=== PATIENT | male | born 1970 | race Caucasian/White ===

== ENCOUNTER 2023-08-25 11:25 | Outpatient (REF) | payer OTHER, SELFPAY ==
[2023-08-25 14:19] LABS: MANUAL DIFF FLAG NO
[2023-08-25 14:21] LABS: Appearance Urine Clear; Color Urine Yellow; Glucose Urine UA Negative (Negative); Leukocyte Esterase Urine Negative (Negative); Nitrite Urine Negative (Negative); Urine Blood Negative (Negative); Urine Ketones Negative (Negative); Urine Protein Negative (Neg-Trace)
[2023-08-25 14:24] LABS: Basophils Percent Auto 1.1 % (0-2); Eosinophils Absolute Auto 0.2 X10*3/uL (0.0-0.4); Eosinophils Percent Auto 6.1 % (0-4); Hematocrit 48.3 % (42.0-52.0); Hemoglobin 16.9 g/dl (14.0-18.0); Imm Gran Abs Auto 0.01 X10*3/uL (0.00-0.03); Imm Gran Pct Auto 0.3 % (0.0-0.4); Lymphocytes Percent Auto 26.1 % (20-40); Mean Corpuscular Hemoglobin 31.3 pg (27.0-33.0); Mean Corpuscular Volume 89.4 fL (80.0-98.0); Monocytes Absolute Auto 0.3 X10*3/uL (0.1-1.2); Monocytes Percent Auto 7.4 % (2-11); Neutrophils Absolute Auto 2.3 x10*3/uL (2.0-8.3); Platelet Count 188 X10*3/uL (160-400); Red Cell Distribution Width 12.8 % (11.0-16.0); White Blood Count 3.8 X10*3/uL (4.8-10.8)
[2023-08-25 14:55] LABS: Creatinine Urine 175.87 mg/dL; Microalbum/Creatinine Ratio Ur 4.5 ug/mg cr (<30)
[2023-08-25 15:01] LABS: Erythrocyte Sedimentation Rate 2 MM/HR (0-15)
[2023-08-25 15:13] LABS: Prostate Specific Antigen Scr 1.47 ng/mL (<0.05-4.0)
[2023-08-25 15:36] LABS: Alanine Aminotransferase 18 U/L (0-40); Albumin Level 4.3 g/dL (3.5-5.0); Alkaline Phosphatase 49 U/L (39-117); Anion Gap 16 (12-20); Aspartate Amino Transferase 26 U/L (5-37); Bilirubin Total 0.9 mg/dL (0.0-1.0); Blood Urea Nitrogen 13 mg/dL (9-16); Calcium 9.7 mg/dL (8.4-10.2); Carbon Dioxide 20 mmol/L (22-29); Chloride 110 mmol/L (96-108); Cholesterol 205 mg/dL (<200); Estimated Glomerular Filt Rate > 60; Glucose Fasting 69 mg/dL (60-99); HDL Cholesterol 55 mg/dL (>40); LDL Cholesterol Calculated 128 mg/dL (<100); Potassium 4.3 mmol/L (3.3-5.1); Sodium 142 mmol/L (135-145); Total Protein 7.5 g/dL (6.5-8.0); Triglycerides 110 mg/dL (<150)
[2023-08-25 16:26] LABS: TSH reflex Free T4 0.93 uIU/mL (0.32-4.0)
[2023-08-27 06:19] LABS: CRP High Sensitivity 0.6 mg/L
== END 2023-08-25 11:26 | disposition home or self-care (01) ==
LOC: HO.WFDLDS 11:25
PROVIDERS: Visit Provider Family Medicine
DX: Z00.00 Encounter for general adult medical examination without abnormal findings (principal); R51.9 Headache, unspecified; I10 Essential (primary) hypertension; Z12.5 Encounter for screening for malignant neoplasm of prostate
CPT/HCPCS: 36415; 80053; 80061; 81003; 82043; 82570; 84153; 84443; 85025; 85652; 86141

== ENCOUNTER 2023-10-08 12:44 | Outpatient (AMB) | payer OTHER, SELFPAY ==
--- NOTE | 2023-10-08 12:47 | MHC.PC.OV ---
Vital Signs 10/08/23 12:48 Height 5 ft 6 in Weight 199 lb 8 oz BMI 32.2 BP 122/62 Blood Pressure Location Lt brachial Position Sitting Pulse 77 Pulse Source Pulse Oximeter Pulse Oximetry (%) 98 Oxygen Delivery Method Room Air Intake Visit Reasons: CPE with f/u labs and health maint. Intake Note: Patient is here for his physical today. Allergies No Known Allergies Allergy (Verified 10/08/23 12:51) Medication List - Last Reconciled 10/08/23 by Cody Young MD No Known Home Meds Tobacco use date assessed: 10/08/23 Dental Screening Dental Screen Date: 08/25/23 HPI CPE with f/u labs and health maint. HPI Details 53 y/o male presents for a CPE with f/u labs and health maintenance. Labs were drawn 08/25/23. Reviewed labs with pt. Triglycerides 110. TC 205. LDL 128. HDL 55. PSA level 1.47 ng/mL. Pt reports he has had a colonoscopy before and reports FHx of colon cancer. He does not remember where his last colonoscopy was. HPI Comments History of Present Illness Details Documentation assistance for Cody Young MD, was provided by Donato Kwan,? Clerk Typist on 10/08/2023 at 1:08 PM EST. I, Dr. Young, have read, observed, and verified documentation. [facility] Medical History (Updated 10/08/23 @ 13:07 by Donato Kwan) Sinusitis Surgical History (Updated 08/25/23 @ 10:30 by Katerina Bolaños CMA) H/O vasectomy Family History (Updated 08/25/23 @ 10:33 by Katerina Bolaños CMA) Brother Mental health disorder Father Mental health disorder High blood pressure Cardiovascular disease Mother Breast cancer Colon cancer Maternal Grandmother Breast cancer Maternal Grandfather Colon cancer Social History (Updated 08/25/23 @ 10:36 by Katerina Bolaños CMA) Household Members: Family Both parents involved: No Caregiver staying overnight: No Housing: House Are you a primary career and guidance counselor to a significant other at home: No Do you presently have visiting nurse or other home services: No Alcohol intake: current Alcohol intake frequency: a few times a week Alcohol type: beer and hard liquor Patient Tobacco Use Status: Never used Tobacco Tobacco use type: Cigarette e-Cigarette/Vaping Use: Never Used Substance Use Type: Marijuana and Other Special sumit needs: No service: No Current occupational status: employed Current occupation: IT worker. Cognitive needs: No Hearing needs: No Vision needs: Yes (Patient wears reading glasses. ) Questionnaire Thrive Questionnaire Date Thrive assessed: 08/25/23 SUSANNAH-7 AMB Questionnaire SUSANNAH-7 Date SUSANNAH - 7 assessed: 08/25/23 Source: Developed by Drs. Chao Hobbs, Alia Stewart, Emre Negron and colleagues, with an educational melany from [employer]. Review of Systems Const Denies chills, Denies fatigue, Denies fever(s), Denies headache(s) and Denies weakness Eyes Denies change in vision ENT Denies dizziness, Denies headache(s), Denies hearing loss, Denies nasal congestion, Denies sinus pain, Denies sinus pressure and Denies sore throat Card Denies chest pain, Denies lightheadedness, Denies dyspnea and Denies other (palpitations) Resp Denies cough, Denies dyspnea and Denies wheezing GI Denies abdominal pain, Denies melena, Denies hematochezia, Denies change in bowel habits, Denies dyspepsia and Denies nausea Denies hematuria and Denies dysuria Musc Denies abnormal gait, Denies myalgias, Denies arthralgias, Denies numbness and Denies tingling Skin/Breast Denies rash, Denies unusual bruising and Denies wounds Neuro Denies abnormal gait, Denies dizziness, Denies headache(s), Denies memory loss, Denies numbness, Denies Sensory deficit (Neuro), Denies tingling and Denies weakness Psych Denies anxiety, Denies depression and Denies memory loss Endo Denies cold intolerance, Denies fatigue, Denies heat intolerance, Denies polydipsia and Denies polyuria Gigi/Lymph Denies easy bleeding and Denies easy bruising Aller/Immun Denies wheezing Physical exam (Primary Care) Vital Signs: Last Vital Signs Pulse 77 10/08/23 12:48 BP 122/62 10/08/23 12:48 Pulse Ox 98 10/08/23 12:48 Oxygen Delivery Method Room Air 10/08/23 12:48 BMI result Body Mass Index 32.2 Tobacco/Smoking Status: Tobacco use Status Tobacco use date assessed 10/08/23 10/08/23 12:56 Patient Tobacco Use Status Never used Tobacco 10/08/23 12:49 Tobacco use type Cigarette 10/08/23 12:49 e-Cigarette/Vaping Use Never Used 10/08/23 12:49 Thrive Assessment: Date of Thrive Assessment Date Thrive assessed 08/25/23 10/08/23 12:49 Const General: no acute distress, well developed, alert and awake Nutritional Appearance: well nourished Orientation/consciousness: patient oriented x3 HENMT Head: Yes normocephalic and Yes atraumatic Ears: hearing grossly normal bilaterally and TM's normal bilaterally General nose exam: Normal external nose present and Normal nares present Mouth: Normal oral and palatal mucosa present and moist mucous membranes Teeth and gingiva: dentition normal Throat: Yes posterior oropharynx normal Eyes General: appearance normal, both eyes and all related structures Pupils: Equal, round and reactive pupils present and Pupil accommodation reflex normal EOM: EOMs intact bilaterally Neck Neck: Yes normal visual inspection, Yes no lymphadenopathy and Yes trachea midline Thyroid: Thyroid normal Carotids: no bruits Lymphatic: no lymphadenopathy noted Chest Chest palpation & inspection: normal inspection of the chest Resp Effort & Inspection: normal respiratory effort Auscultation: clear to auscultation bilaterally Cardio Rate: regular rate Rhythm: regular rhythm Heart sounds: S1 normal heart sound present, S2 normal heart sound present, no gallops, no murmurs and no rubs Bruits: no abdominal aortic bruits and no carotid bruits GI Palpation (GI): No Abdominal aortic bruit present, Soft to palpation, nontender, No hepatosplenomegaly present and No Rebound tenderness present Auscultation: normal bowel sounds General: Yes no CVA tenderness Back/Spine/Pelvis Back: no CVA tenderness Cervical Spine: cervical ROM normal and No Cervical spine tenderness Thoracic/Lumbar Spine: thoraco-lumbar ROM normal, No pain with thoraco-lumbar ROM, No thoracic spinal tenderness and No lumbar spinal tenderness Skin Lesions: no lesions Rashes: no rashes Trauma: no lacerations or abrasions Wounds: no wounds Nails: normal Neuro General: patient oriented x3 Cranial nerves: Yes Equal, round and reactive pupils present Cognition (Neuro): normal cognition Gait exam (Neuro): Normal gait present Motor exam (neuro): 5/5 motor strength present throughout Sensory Exam: No Sensory deficit (Neuro) Deep tendon reflexes (DTR's): Right patellar reflex intensity grade: 2+ and Left patellar reflex intensity grade: 2+ Extrem General: Yes normal to inspection and No edema Psych Appearance: grossly normal Affect: normal affect Attitude: cooperative Thought process: Normal thought process present Assessment and Plan Assessment & Plan (1) Adult general medical exam: Code(s): Z00.00 - Encounter for general adult medical examination without abnormal findings Plan: Presents?for?complete?physical?exam Encouraged?healthy?diet?with?active?lifestyle?and?plenty?of?exercise (2) Hypercholesterolemia: Code(s): E78.00 - Pure hypercholesterolemia, unspecified Plan: LDL?elevated HDL?ratios?okay Encouraged?diet?lower?in?saturated?fats?and?cholesterol,?exercise?and?some?weight?loss (3) Screening for prostate cancer: Code(s): Z12.5 - Encounter for screening for malignant neoplasm of prostate Plan: PSA?was?within?normal?limits Continue?annual?screening (4) Screening for colon cancer: Code(s): Z12.11 - Encounter for screening for malignant neoplasm of colon Plan: Patient?has?had?a?colonoscopy?and?is?uncertain?where?this?was?done?in?[facility]?family?history?of?colon?cancer?(mother)?and?his?most?recent?colonoscopy?showed?polyps?so?he?was?advised?to?follow-up?in?3?years Will?ask?the?office?to?track?down?colonoscopy?report?so?we?can?advise?when?he?should?go?for?follow-up Advised?patient?to?check?with?their?spanner operator?so?they?know?when?they?should?follow-up Coding Level of Care Code Est Pt Level 3 (32587) Est Pt Prev Care 40-64y(20604) Diagnoses Adult general medical exam Z00.00 Hypercholesterolemia E78.00 Screening for prostate cancer Z12.5 Screening for colon cancer Z12.11
[2023-10-08 12:48] VITALS: BP 122/62; PULSE 77; O2SAT 98; BMI 32.2
== END 2023-10-08 13:21 | disposition home or self-care (01) ==
PROVIDERS: PCP Family Medicine; Visit Provider Family Medicine
DX: Z00.00 Encounter for general adult medical examination without abnormal findings (principal); E78.00 Pure hypercholesterolemia, unspecified; Z12.5 Encounter for screening for malignant neoplasm of prostate; Z12.11 Encounter for screening for malignant neoplasm of colon
CPT/HCPCS: 99396

== ENCOUNTER 2024-09-06 13:10 | Outpatient (AMB) | payer OTHER, SELFPAY ==
[2024-09-06 13:29] VITALS: BP 120/74; PULSE 75; O2SAT 96; BMI 32.8
--- NOTE | 2024-09-06 13:29 | MHC.OFFVIS ---
Vital Signs 09/06/24 13:29 Height 5 ft 6 in Weight 203 lb BMI 32.8 BP 120/74 Blood Pressure Location Lt brachial Position Sitting Pulse 75 Pulse Source Pulse Oximeter Pulse Oximetry (%) 96 Oxygen Delivery Method Room Air Intake Visit Reasons: I-PLASTER APPLICATOR: Sleep Apnea + Headaches Intake Note: HPatient presents internal referral for CORI and headaches. Glost Kiln Operator Required: No Accompanied by: Self / Same As Patient Allergies No Known Allergies Allergy (Verified 09/06/24 13:31) Medication List - Last Reconciled 09/06/24 by ZULEYKA Guallpa No Known Home Meds HPI Comments Details: Right-handed 54-yr-old male presents for new pt evaluation of sleep and headache disorder. Pt reports he has headaches for 2-3 years, which were worsening, but have been better in the last couple of months. Denies preceding infection, injury, travel prior to onset of headaches. Pt reports his sleep difficulties are predominantly sleep maintenance difficulties. His has told him he snores, has apneas/gasping, but he is not sure. He can be sleepy during the day. Pt states that he just realized that his sleep maintenance issues may be secondary to newer onset BUE, but mostly LUE 2nd and 3rd finger, an annoying numbness (w/o pins and needles) which wakes him up at night. Notices this more ta night, and can wake him up. He feels this is different and not a/w the headache. PMH and ROS are notable for:? General: denies dizziness, motion sickness Musculoskeletal disorders or injury: has h/o right shoulder injury History of concussion/head injury: maybe as a child Mood d/o: denies Respiratory d/o: denies CV disease: mild HLD Clotting or hematology d/o: Raynaud's - fingers may turn white, self-dx's about 5 yrs ago. Endocrine or metabolic d/o: denies History of seizure: denies. History of syncope: denies : denies GI d/o: denies Family history of migraine or other headache disorder: denies Lifestyle considerations: Sleep routine: Usual bedtime: 9-9:15pm, and reads- asleep by 9:30pm, and wake-up time: 2-4am- and then reads to try to fall back asleep. He has to be up for 6am. Also has a dog- who sometimes wakes him up but not always. Sleep environment is conducive to sleeping. Does read on a juan pablo or uses his tablet- uses blue light filtering on these. Sleep difficulties: Endorses: Snoring- more so if he sleeps on his back- typically only does this when drinking, daytime sleepiness depending on sleep and activity, Fatigue, has told him he has apneas and gasping Arousals, unrefreshing sleep. Denies parasomnias, restlessness, acid reflux, dry mouth/throat. Caffeine use: green tea- 1 cups per am/early afternoon. Substance use: Tried marijuana for sleep- but was not very effective so stopped. Alcohol- couple of drinks after dinner- 1-2 beers +/- bourbon- not every night. Exercise:?started back at the gym 3 days a week- 45 min strength, 30 min ellipictal- around 5pm. 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 Age/time of onset: couple of years ago Preceding causes: unknown Previous work-up: none Types of headache disorders: 1 Typical headache characteristics: Prodrome symptoms: Occasional notion the night before that a headache was coming. Aura: denies Pain intensity: 810 Location, quality, characteristics: Left sided stabbing headache Associated symptoms: difficult to concentrate- but able to work through it. Postdrome: denies Triggers: he thought alcohol, but it did not consistently trigger the headache. Time of day: Typically would wake up with the headache. Duration and Frequency: constant x's 1.5 days. Tends to occur once every few months. How does headache impact your life? none Current acute medication use/interventions: OTC excedrin- ineffective. Ibuprofen w/ Tylenol- ineffective. Current preventative medication use: none Current non-pharmacological interventions: exercise seemed to help PFSH Medical History (Updated 09/06/24 @ 17:23 by ZULEYKA Guallpa) Sinusitis Surgical History (Updated 08/25/23 @ 10:30 by Katerina Bolaños CMA) H/O vasectomy Family History (Updated 08/25/23 @ 10:33 by Katerina Bolaños CMA) Brother Mental health disorder Father Mental health disorder High blood pressure Cardiovascular disease Mother Breast cancer Colon cancer Maternal Grandmother Breast cancer Maternal Grandfather Colon cancer Social History (Updated 08/25/23 @ 10:36 by Katerina Bolaños [facility]) Household Members: Family Both parents involved: No Caregiver staying overnight: No Housing: House Are you a primary foster care social worker to a significant other at home: No Do you presently have visiting nurse or other home services: No Alcohol intake: current Alcohol intake frequency: a few times a week Alcohol type: beer and hard liquor Patient Tobacco Use Status: Never used Tobacco Tobacco use type: Cigarette e-Cigarette/Vaping Use: Never Used Substance Use Type: Marijuana and Other Special sumit needs: No service: No Current occupational status: employed Current occupation: IT worker. Cognitive needs: No Hearing needs: No Vision needs: Yes (Patient wears reading glasses. ) Physical Exam Vital Signs: Last Vital Signs Pulse 75 09/06/24 13:29 BP 120/74 09/06/24 13:29 Pulse Ox 96 09/06/24 13:29 Oxygen Delivery Method Room Air 09/06/24 13:29 BMI result Body Mass Index 32.8 Const Orientation/consciousness: patient oriented x3 Resp Effort & Inspection: normal respiratory effort and able to speak in complete sentences Neuro Other: Mallampati stage IV Mild forward head posture. No palpable scalp or trapezius tenderness. Negative LUE Tinel, Phalen, medial compression test. LUE unrestricted range of motion. Cervical extension limited- negative Spurling General: patient oriented x3 Cranial nerves: Yes CN's II-XII intact bilaterally Cognition (Neuro): normal cognition Gait exam (Neuro): Normal gait present Motor exam (neuro): 5/5 motor strength present throughout Deep tendon reflexes (DTR's): Right triceps reflex intensity grade: 2+, Left triceps reflex intensity grade: 2+, Rt Biceps (C5, C6): 2+, Left biceps reflex intensity grade: 2+, Right brachioradialis reflex intensity grade: 2+, Left brachioradialis reflex intensity grade: 2+, Right patellar reflex intensity grade: 2+ and Left patellar reflex intensity grade: 2+ Coordination: [id number] test normal, tandem gait normal and Romberg test negative Pupils: Normal pupillary reactivity/response: bilateral Psych Appearance: grossly normal Mental Status: mental status grossly normal Speech and movement: Normal speech and movement present Affect: normal affect Attitude: cooperative Thought process: Normal thought process present Assessment & Plan Assessment & Plan (1) Left-sided headache: Code(s): R51.9 - Headache, unspecified Category: Medical (2) Left hand paresthesia: Code(s): R20.2 - Paresthesia of skin Category: Medical (3) Left hand paresthesia: Code(s): R20.2 - Paresthesia of skin Category: Medical (4) Snoring: Code(s): R06.83 - Snoring Category: Medical (5) Sleep difficulties: Comment: ESS 10 Code(s): G47.9 - Sleep disorder, unspecified Category: Medical (6) Excessive daytime sleepiness: Code(s): G47.19 - Other hypersomnia Category: Medical Plan Pt advised to undergo: Brain MRI with and without contrast due to new onset headache in a patient greater than 50 years old, as well as new onset left hand paresthesias/numbness. HST to assess for sleep apnea XR C-spine with flexion and extension LUE EMG/NCS to assess for etiologies of left 2nd 3rd finger paresthesias/numbness. Upon review of above, we will refer patient for PT/OT. For sleep maintenance difficulties in LUE paresthesias/numbness: Start magnesium 400 mg q.h.s. Trial OTC cock-up style wrist splint at night Use a supportive pillow Continue regular exercise program For acute headache treatment: May continue Tylenol/ibuprofen for now pending workup as above Previous acute migraine medication trials: Excedrin ineffective Acute headache medication contraindications: None at this time For headache prevention medication: Start magnesium 400 mg q.h.s.-also for sleep and muscle relaxation. Previous migraine prevention medication trials: None Migraine prevention medication contraindications: None at this time Pt seen in collaboration w/ Dr Christi Hernandez. Will follow-up upon review of above and patient to follow-up in clinic in 6 months or sooner prn. Orders: Orders MR head/brain wo/w con Today R20.2 - Paresthesia of skin, R51.9 - Headache, unspecified RT home sleep study Today G47.19 - Other hypersomnia, G47.9 - Sleep disorder, unspecified, R06.83 - Snoring XR cervical spine w flex/ext Today R20.2 - Paresthesia of skin, R51.9 - Headache, unspecified NE electromyogram (EMG) Today R20.2 - Paresthesia of skin NE nerve conduction velocity Today R20.2 - Paresthesia of skin Medications: New magnesium oxide may hold for loose stools 400 mg PO BEDTIME 30 days 30 tabs 6RF Coding Level of Care Code New Pt Level 4 (12538) Diagnoses Left-sided headache R51.9 Left hand paresthesia R20.2 Snoring R06.83 Sleep difficulties G47.9 Excessive daytime sleepiness G47.19
== END 2024-09-06 14:59 | disposition home or self-care (01) ==
LOC: HO.HSMS 13:10
PROVIDERS: PCP Family Medicine; Visit Provider Nurse Practitioner Family
DX: R51.9 Headache, unspecified (principal); R20.2 Paresthesia of skin; R06.83 Snoring; G47.9 Sleep disorder, unspecified; G47.19 Other hypersomnia
CPT/HCPCS: 99204

== ENCOUNTER 2024-09-30 08:00 | Outpatient (REF) | payer OTHER, SELFPAY ==
[2024-09-30 11:44] LABS: Appearance Urine Clear; Color Urine Yellow; Glucose Urine UA Negative (Negative); Leukocyte Esterase Urine Negative (Negative); Nitrite Urine Negative (Negative); PH 5.5 (5.0-9.0); Specific Gravity - Urine 1.025 (1.005-1.025); Urine Blood Negative (Negative); Urine Ketones Trace mg/dL (Negative); Urine Protein Negative (Neg-Trace)
[2024-09-30 11:59] LABS: Prostate Specific Antigen Scr 1.46 ng/mL (<0.05-4.0)
[2024-09-30 12:15] LABS: Creatinine Urine 316.34 mg/dL; Microalbum/Creatinine Ratio Ur 3.1 ug/mg cr (<30)
[2024-09-30 13:03] LABS: Alanine Aminotransferase 26 U/L (0-40); Albumin Level 4.1 g/dL (3.5-5.0); Alkaline Phosphatase 47 U/L (39-117); Anion Gap 10 (12-20); Aspartate Amino Transferase 34 U/L (5-37); Blood Urea Nitrogen 21 mg/dL (9-16); Calcium 9.3 mg/dL (8.4-10.2); Carbon Dioxide 28 mmol/L (22-29); Chloride 108 mmol/L (96-108); Cholesterol 182 mg/dL (<200); Estimated Glomerular Filt Rate 46; Glucose Fasting 89 mg/dL (60-99); HDL Cholesterol 56 mg/dL (>40); LDL Cholesterol Calculated 102 mg/dL (<100); Potassium 3.9 mmol/L (3.3-5.1); Sodium 142 mmol/L (135-145); TSH reflex Free T4 1.94 uIU/mL (0.32-4.0); Total Protein 6.6 g/dL (6.5-8.0); Triglycerides 123 mg/dL (<150)
== END 2024-09-30 08:01 | disposition home or self-care (01) ==
LOC: HO.WFDLDS 08:00
PROVIDERS: Visit Provider Family Medicine
DX: Z00.00 Encounter for general adult medical examination without abnormal findings (principal); Z12.5 Encounter for screening for malignant neoplasm of prostate; I10 Essential (primary) hypertension
CPT/HCPCS: 36415; 80053; 80061; 81003; 82043; 82570; 84153; 84443

== ENCOUNTER 2024-10-10 16:01 | Outpatient (AMB) | payer OTHER, SELFPAY ==
--- NOTE | 2024-10-10 16:06 | MHC.PC.OV ---
Vital Signs 10/10/24 16:10 Height 5 ft 6 in Weight 200 lb 6 oz BMI 32.3 BP 120/80 Blood Pressure Location Rt brachial Position Sitting Pulse 60 Pulse Source Pulse Oximeter Temp 97.5 F Temp Source Temporal Artery Scan Pulse Oximetry (%) 97 Oxygen Delivery Method Room Air Intake Visit Reasons: CPE with f/u labs and health maint. Intake Note: Amilcar presents in the office today for his annual physical and lab review. Allergies Seasonal Allergies Allergy (Verified 10/10/24 16:09) Runny Nose Tobacco use date assessed: 10/10/24 Dental Screening Dental Screen Date: 10/10/24 Did you have a dental visit in the last 12 months?: Yes Did you have a dental problem in the last 6 months where you did not have access to dental care?: No Was dental information given to patient?: Patient has dentist HPI HPI Comments History of Present Illness Details This is a 54-year-old male with a past medical history of headaches, snoring, hyperlipidemia and obesity presenting for a physical exam. The patient was seen in the neurology department on 09/06/2024 for evaluation of bilateral hand paresthesias and headaches. Further workup including brain MRI, home sleep study, x-ray of the cervical spine and upper extremity EMG/NCS has been ordered. Patient does computer work during the day. He also reports having symptoms of tennis elbow in the right arm which have been improving. He has a tennis elbow strap. It is not limiting his activities. He is going to proceed with further workup, and he may be referred to physical therapy per Neurology notes. If his EMG demonstrates carpal tunnel syndrome we discussed referral to hand surgery. Patient reports his last colonoscopy was in July 2022 at [facility], and he was told to repeat it in 3 years due to polyps. He needs to schedule an eye exam. Dental exam is up-to-date. We reviewed his blood work from 09/30/2024. He has mildly impaired renal function with a creatinine of 1.56 and GFR 46. He reports using NSAIDs 3-4 times per week due to headaches. He is not diabetic. He is a nonsmoker. There were trace ketones on his urinalysis which may also indicate mild dehydration on the day of the test. His LDL cholesterol is satisfactory at 102, triglycerides 123, HDL 56. Prostate specific antigen screening is also normal. ROS: Constitutional: No unexplained weight loss, fever, chills, or night sweats. +fatigue. Eyes: No vision changes, blurry vision, double vision, eye pain, eye redness, eye discharge. ENT: No hearing loss, sneezing, congestion, runny nose or sore throat. Respiratory: No shortness of breath, cough or sputum production. Cardiovascular: No chest pain, chest pressure or chest discomfort. No palpitations or pedal edema. Gastrointestinal: No anorexia, nausea, vomiting or diarrhea. No abdominal pain or blood in stool. Genitourinary: No dysuria, hematuria, urinary frequency. Denies testicular masses, groin pain. Neurologic: No dizziness, syncope, unilateral weakness, ataxia, numbness or tingling in the extremities. Musculoskeletal: See HPI. Denies joint swelling or back pain. Hematologic/Lymphatics: No bleeding or bruising. No painful lymph nodes. Skin: No rash or itching. No new or changing moles or freckles. Endocrine: No cold or heat intolerance. No polyuria or polydipsia. Psychiatric: No depression or anxiety. No SI/HI. .Physical exam: Constitutional: Alert, in no distress. Head: Normocephalic. Eyes: Pupils are equal, round and reactive to light. Extraocular muscles intact. Ear, Nose and Throat: Canals clear. TMs normal. Normal nasal mucosa. No nasal discharge. No oral lesions. Neck: Supple, Full range of motion. No lymphadenopathy. No palpable thyroid masses. Respiratory: Clear to auscultation. Cardiovascular: S1 S2 regular. No murmurs. No carotid bruits. Gastrointestinal: Abdomen soft, non-tender, non-distended. Normal bowel sounds. No palpable masses. Genitourinary: Deferred. Neurologic: No focal neurological deficits. Symmetric patellar reflexes. Moves all extremities spontaneously. Skin: No rashes Musculoskeletal: No gross deformities. Normal range of motion. Extremities: Warm and well perfused. No clubbing, cyanosis or edema. Intact peripheral pulses bilaterally. Psychiatric: Normal mood and affect [facility] Medical History (Updated 10/11/24 @ 08:53 by CYNDI Puente) Decreased renal function Routine physical examination Sinusitis Surgical History (Updated 08/25/23 @ 10:30 by Katerina Bolaños CMA) H/O vasectomy Family History Brother Mental health disorder Father Mental health disorder High blood pressure Cardiovascular disease Mother Breast cancer Colon cancer Maternal Grandmother Breast cancer Maternal Grandfather Colon cancer Social History (Updated 10/10/24 @ 16:07 by Jess Vizcaino MA) Household Members: Family Both parents involved: No Caregiver staying overnight: No Housing: House Are you a primary ocular care technician to a significant other at home: No Do you presently have visiting nurse or other home services: No Alcohol intake: current Alcohol intake frequency: a few times a week Alcohol type: beer and hard liquor Patient Tobacco Use Status: Never used Tobacco Tobacco use type: Cigarette e-Cigarette/Vaping Use: Never Used Second Hand Smoke Exposure: No Substance Use Type: Marijuana and Other Special sumit needs: No service: No Current occupational status: employed Current occupation: IT worker. Cognitive needs: No Hearing needs: No Vision needs: Yes (Patient wears reading glasses. ) Questionnaire PHQ-9 Over the last 2 weeks, how often have you been bothered by any of the following problems? 1. Little interest or pleasure in doing things: not at all 2. Feeling down, depressed, or hopeless: not at all 3. Trouble falling or staying asleep, or sleeping too much: more than half the days 4. Feeling tired or having little energy: several days 5. Poor appetite or overeating: not at all 6. Feeling bad about yourself - or that you are a failure or have let yourself or your family down: not at all 7. Trouble concentrating on things, such as reading the newspaper or watching television: not at all 8. Moving or speaking so slowly that other people could have noticed. Or the opposite - being so fidgety or restless that you have been moving around a lot more than usual: not at all 9. Thoughts that you would be better off or of hurting yourself in some way: not at all Total score: 3 Depression Screening Interpretation: Negative Depression Screening Done: Yes 98609 - PHQ-9 Billing: Yes Source: Developed by Drs. Chao Hobbs, Alia Stewart, Emre Negron and colleagues, with an educational melany from [employer]. Thrive Questionnaire Date Thrive assessed: 06/16/25 I am a: Patient What is your living situation today?: I have a steady place to live Within the past 12 months, did the food you bought not last and you didn't have the money to get more?: Never true Within the past 12 months, did you worry whether your food would run out before you got money to buy more?: Never true Do you have trouble paying for medicines?: No Do you have trouble getting transportation to medical appointments?: No Do you have trouble paying your heating and electricity bill?: No Do you have trouble taking care of your child, family member or friend?: No Do you have trouble with day-to-day activities such as bathing, preparing meals, shopping, managing finances, etc.?: No Are you currently unemployed and looking for a job?: No Are you interested in more education?: No Please select the resources that you would like help with: None Currently or been in a relationship where the following occur: No concerns reported THRIVE Score: 0 AUDIT C Alcohol Use Questionnaire (AUDIT-C) 1. How often do you have a drink containing alcohol?: 2-3 times a week 2. How many drinks containing alcohol do you have on a typical day when you are drinking?: 3 or 4 3. How often do you have six or more drinks on one occasion?: Less than monthly Total Score: 5 SUSANNAH-7 AMB Questionnaire SUSANNAH-7 Date SUSANNAH - 7 assessed: 10/10/24 Feeling nervous, anxious, or on edge: 0 = Not at all Not being able to stop or control worryin = Not at all Worrying too much about different things: 0 = Not at all Trouble relaxin = Not at all Being so restless that it is hard to sit still: 0 = Not at all Becoming easily annoyed or irritable: 0 = Not at all Feeling afraid as if something awful might happen: 0 = Not at all Total SUSANNAH-7 score (0-4 normal; 5-9 mild; 10-14 moderate; 15-21 severe): 0 Source: Developed by Drs. Chao Hobbs, Alia Stewart, Emre Negron and colleagues, with an educational melany from [employer]. SUSANNAH-7 Assessment Billing SUSANNAH-7 Assessment Tool: SUSANNAH-7 Assessment 74044 Physical exam (Primary Care) Vital Signs: Last Vital Signs Temp 97.5 F 10/10/24 16:10 Pulse 60 10/10/24 16:10 BP 120/80 10/10/24 16:10 Pulse Ox 97 10/10/24 16:10 Oxygen Delivery Method Room Air 10/10/24 16:10 BMI result Body Mass Index 32.3 Tobacco/Smoking Status: Tobacco use Status Tobacco use date assessed 10/10/24 10/10/24 16:13 Patient Tobacco Use Status Never used Tobacco 10/10/24 16:13 Tobacco use type Cigarette 10/10/24 16:13 e-Cigarette/Vaping Use Never Used 10/10/24 16:13 PHQ-9: PHQ-9 Score PHQ-9: Total score 3 10/10/24 16:28 Depression Screening Interpretation: Negative Thrive Assessment: Date of Thrive Assessment Date Thrive assessed 10/10/24 10/10/24 16:13 Currently or been in a relationship where the following occur: No concerns reported Coding Level of Care Code Est Pt Prev Care 40-64y(88360) Diagnoses Routine physical examination Z00.00 Decreased renal function N28.9 Additional Codes SUSANNAH-7 Assessment Billing - SUSANNAH-7 Assessment Tool: SUSANNAH-7 Assessment 00427 ([id number]) PHQ-9 - 15261 - PHQ-9 Billing: Yes ([id number]) Assessment & Plan Assessment & Plan (1) Routine physical examination: Code(s): Z00.00 - Encounter for general adult medical examination without abnormal findings Category: Medical Plan: Patient is seen today for a routine physical. As part of this visit we reviewed the following issues, which are considered and essential part of preventative health in this age group: - Screening for colon cancer - Discussed Prostate cancer screening - Blood pressure screening - Cholesterol screening - Nutritional and exercise counseling - Counseling of injury prevention including fire prevention, smoke alarms and seat belt usage - Screening for depression - Education about skin cancer - Recommendations about immunizations- patient is due for pneumonia vaccine and tetanus immunization. He will receive them at the pharmacy. - Recommendation of an eye exam - Screening for substance abuse (2) Decreased renal function: Code(s): N28.9 - Disorder of kidney and ureter, unspecified Category: Medical Plan: No proteinuria. Advised patient to decrease NSAID use and increase hydration and return to the lab to repeat renal function testing. Further workup will be pursued if renal function remains abnormal. Plan Schedule physical exam in 1 year. Orders: Orders Creatinine 10/10/24 E11.9 - Type 2 diabetes mellitus without complications
[2024-10-10 16:10] VITALS: BP 120/80; PULSE 60; TEMP 36.4; O2SAT 97; BMI 32.3
== END 2024-10-10 16:42 | disposition home or self-care (01) ==
LOC: HO.HMCFM 16:02
PROVIDERS: PCP Family Medicine; Visit Provider Physician Assistant Medical
DX: Z00.00 Encounter for general adult medical examination without abnormal findings (principal); N28.9 Disorder of kidney and ureter, unspecified

== ENCOUNTER → 2024-10-10 16:01 | Outpatient (BNVA) | payer OTHER, SELFPAY | PROVIDERS: PCP Family Medicine; Visit Provider Physician Assistant Medical | DX: Z00.00 Encounter for general adult medical examination without abnormal findings (principal); N28.9 Disorder of kidney and ureter, unspecified; Z13.31 Encounter for screening for depression; Z13.30 Encounter for screening examination for mental health and behavioral disorders, unspecified | CPT/HCPCS: 96127 ==

== ENCOUNTER 2024-10-13 15:40 | Outpatient (REF) | payer OTHER, SELFPAY ==
[2024-10-13 17:58] LABS: Estimated Glomerular Filt Rate 49
== END 2024-10-13 15:41 | disposition home or self-care (01) ==
LOC: HO.WFDLDS 15:40
PROVIDERS: Visit Provider Physician Assistant Medical
DX: E11.9 Type 2 diabetes mellitus without complications (principal)
CPT/HCPCS: 36415; 82565

== ENCOUNTER 2024-10-14 14:27 | Outpatient (REF) | payer OTHER, SELFPAY ==
--- NOTE | 2024-10-14 14:29 | EMG_ITS ---
Chief complaint: Left hand numbness Reason for referral: Evaluate for Carpal Tunnel Syndrome Referred by: Virginia Mcgraw Procedure done: Left upper extremity NCS/EMG Precautions and/or limitations: None The limb temperature was monitored continuously and remained between 32-36 degrees C during the performance of the NCS. Nerve Conduction Studies Anti Sensory Summary Table ?Stim Site NR Onset (ms) Norm Onset (ms) Peak (ms) Norm Peak (ms) O-P Amp (?V) Norm O-P Amp Site1 Site2 Delta-0 (ms) Dist (cm) Flaco (m/s) Norm Flaco (m/s) Left Median Anti Sensory (2nd Digit) Wrist ? 2.8 3.7 <3.6 9.9 >10 Wrist 2nd Digit 2.8 14.0 50 Left Ulnar Anti Sensory (5th Digit) Wrist ? 1.9 2.5 <3.7 11.7 >15.0 Wrist 5th Digit 1.9 14.0 74 Motor Summary Table ?Stim Site NR Onset (ms) Norm Onset (ms) O-P Amp (mV) Norm O-P Amp iAmp (mV) Amp (1st) (%) Site1 Site2 Delta-0 (ms) Dist (cm) Flaco (m/s) Norm Flaco (m/s) Left Median Motor (Abd Poll Brev) Wrist ? 4.1 <3.9 8.5 >4.5 10.3 100.0 Elbow Wrist 3.9 20.0 51 >45 Elbow ? 8.0 10.2 12.2 120.0 Left Ulnar Motor (Abd Dig Minimi) Wrist ? 2.3 <3.0 7.5 >5 9.3 100.0 B Elbow Wrist 3.6 20.0 56 >45 B Elbow ? 5.9 6.9 8.8 92.0 A Elbow B Elbow 1.6 10.0 63 >45 A Elbow ? 7.5 6.5 8.5 86.7 Comparison Summary Table ?Stim Site NR Peak (ms) Norm Peak (ms) P-T Amp (?V) Site1 Site2 Delta-P (ms) Norm Delta (ms) Left Median/Radial Dig I Comparison (Digit 1 - 10cm) Median ? 3.3 <2.9 39.1 Median Radial 0.7 Radial ? 2.6 <2.8 0.0 EMG ?Side Muscle Nerve Root Ins Act Fibs Psw Amp Dur Poly Recrt Int Pat Comment Left 1stDorInt Ulnar C8-T1 Nml Nml Nml Nml Nml 0 Nml Complete Left FlexCarRad Median C6-7 Nml Nml Nml Nml Nml 0 Nml Complete Left Biceps Musculocut C5-6 Nml Nml Nml Nml Nml 0 Nml Complete Left Triceps Radial C6-7-8 Nml Nml Nml Nml Nml 0 Nml Complete Left Deltoid Axillary C5-6 Nml Nml Nml Nml Nml 0 Nml Complete FINDINGS: Left median motor nerve showed prolonged distal latency, normal amplitude and normal conduction velocity. Left median sensory nerve showed small amplitude and prolonged peak latency. Significant interlatency difference seen between left median and radial sensory nerves. All other nerves tested were within normal. Concentric needle EMG was performed in selected muscles of the left upper extremity. Study did not reveal signs of electric abnormalities as shown in the table above. IMPRESSION: 1. This is an abnormal study. 2. There is electrodiagnostic evidence for left moderate-severe median neuropathy at the wrist, consistent with carpal tunnel syndrome. 3. There is no electrodiagnostic evidence for ulnar neuropathy, brachial plexopathy, or cervical radiculopathy. Thank you for your kind referral. Shabnam Velazquez MD, IMELDA Board Certified, [place] Board of Physical Medicine and Rehabilitation (ABPMR) Board Certified, [place] Board of Electrodiagnostic Medicine (ABEM) [facility] [id number] [facility]
== END 2024-10-14 14:28 | disposition home or self-care (01) ==
LOC: HO.NEURO 14:27
PROVIDERS: PCP Family Medicine; Visit Provider Nurse Practitioner Family
DX: R20.2 Paresthesia of skin (principal)
CPT/HCPCS: 95886; 95909

== ENCOUNTER → 2024-10-14 14:29 | Outpatient (BNV) | payer OTHER, SELFPAY | PROVIDERS: PCP Family Medicine; Visit Provider Physical Medicine & Rehabilitation | DX: G56.02 Carpal tunnel syndrome, left upper limb (principal) | CPT/HCPCS: 95886; 95909 ==

== ENCOUNTER → 2024-11-17 15:49 | Outpatient (REF) | payer OTHER, SELFPAY | LOC: HO.SL 15:49 | PROVIDERS: PCP Physician Assistant Medical; Visit Provider Nurse Practitioner Family | DX: G47.30 Sleep apnea, unspecified (principal); R06.83 Snoring; G47.9 Sleep disorder, unspecified; G47.19 Other hypersomnia | CPT/HCPCS: 95806 ==

== ENCOUNTER → 2024-11-17 16:02 | Outpatient (BNV) | payer OTHER, SELFPAY | PROVIDERS: PCP Physician Assistant Medical; Visit Provider Psychiatry & Neurology Neurology | DX: R06.83 Snoring (principal) | CPT/HCPCS: 95806 ==

== ENCOUNTER 2024-11-18 11:09 | Outpatient (REF) | payer OTHER, SELFPAY ==
[2024-11-18 14:15] LABS: Estimated Glomerular Filt Rate 52
== END 2024-11-18 11:10 | disposition home or self-care (01) ==
LOC: HO.WFDLDS 11:09
PROVIDERS: Visit Provider Physician Assistant Medical
DX: N28.9 Disorder of kidney and ureter, unspecified (principal)
CPT/HCPCS: 36415; 82565

== ENCOUNTER 2024-12-09 09:18 | Outpatient (AMB) | payer OTHER, SELFPAY ==
[2024-12-09 09:33] VITALS: BP 104/70; PULSE 82; O2SAT 97; BMI 31.1
--- NOTE | 2024-12-09 09:33 | HO.NEPHOV_ITS ---
Vital Signs 12/09/24 09:33 Height 5 ft 6 in Weight 193 lb BMI 31.1 BP 104/70 Blood Pressure Location Lt brachial Position Sitting Pulse 82 Pulse Source Pulse Oximeter Pulse Oximetry (%) 97 Oxygen Delivery Method Room Air Intake Visit Reasons: INP: Disorder of kidney and ureter-Conf Senior Systems Administrator Required: No Accompanied by: Self / Same As Patient Allergies Seasonal Allergies Allergy (Verified 12/09/24 09:35) Runny Nose Medication List - Last Reconciled 12/09/24 by Anil Hernandez MD magnesium oxide 400 mg PO BEDTIME 30 days HPI Comments Details: The patient is a 54-year-old male presenting with elevated serum creatinine levels. The patient had been taking creatine supplements for bodybuilding, which may have contributed to the elevated creatinine levels. The creatinine level was 1.01 mg/dL in July 2023, which increased to 1.56 mg/dL in September 2024. The patient stopped taking creatine supplements approximately six weeks ago, and a follow-up blood test showed some improvement, but the levels were still not within the normal range. The patient has a family history of chronic kidney disease, as his mother has been diagnosed with stage 3 or 4 kidney disease, although she is not on dialysis. she has DM The patient also reports mild sleep apnea, for which a sleep study was conducted approximately four weeks ago, but the results have not yet been reviewed. The patient maintains an active lifestyle, regularly attending the gym and using the [employer] three times a week. [facility] Medical History (Updated 10/11/24 @ 08:53 by CYNDI Puente) Decreased renal function Routine physical examination Sinusitis Surgical History H/O vasectomy Family History Brother Mental health disorder Father Mental health disorder High blood pressure Cardiovascular disease Mother Breast cancer Colon cancer Maternal Grandmother Breast cancer Maternal Grandfather Colon cancer Social History Household Members: Family Both parents involved: No Caregiver staying overnight: No Housing: House Are you a primary direct care supervisor to a significant other at home: No Do you presently have visiting nurse or other home services: No Alcohol intake: current Alcohol intake frequency: a few times a week Alcohol type: beer and hard liquor Patient Tobacco Use Status: Never used Tobacco Tobacco use type: Cigarette e-Cigarette/Vaping Use: Never Used Second Hand Smoke Exposure: No Substance Use Type: Marijuana and Other Special sumit needs: No service: No Current occupational status: employed Current occupation: IT worker. Cognitive needs: No Hearing needs: No Vision needs: Yes (Patient wears reading glasses. ) Review of Systems Const Denies anorexia, Denies fever(s) and Denies weakness Eyes Denies blurry vision Card Denies no additional complaints and Denies dyspnea Resp Reports no additional complaints, Reports cough and Denies dyspnea GI Denies melena and Denies diarrhea Denies hematuria Musc Denies tingling Skin/Breast Denies rash Neuro Denies focal weakness, Denies tingling, Denies tremor(s) and Denies weakness Physical Exam Vital Signs: Last Vital Signs Pulse 82 12/09/24 09:33 BP 104/70 12/09/24 09:33 Pulse Ox 97 12/09/24 09:33 Oxygen Delivery Method Room Air 12/09/24 09:33 BMI result Body Mass Index 31.1 Comfortable Neck supple no JVD. Lungs entry equal no rales. Heart S1-S2 heard no gallop or rub. Abdomen soft nontender. Neuro alert awake oriented. No asterixis. Extremities no edema. Results Reviewed Nephrology Results: Sodium, (135-145) 142 mmol/L 09/30/24 Potassium, (3.3-5.1) 3.9 mmol/L 09/30/24 Chloride, (96-108) 108 mmol/L 09/30/24 Carbon Dioxide, (22-29) 28 mmol/L 09/30/24 BUN, (9-16) 21 mg/dL H 09/30/24 Creatinine, (0.5-1.4) 1.41 mg/dL H 11/18/24 Calcium, (8.4-10.2) 9.3 mg/dL 09/30/24 Urine Protein, (Neg-Trace) Negative mg/dL 09/30/24 Urine Creatinine 316.34 mg/dL 09/30/24 Assessment & Plan Assessment & Plan (1) Decreased renal function: Code(s): N28.9 - Disorder of kidney and ureter, unspecified Category: Medical Plan Amilcar has elevated serum creatinine. I believe this is due to increase creatinine intake. Recent urine studies were benign and I do not believe he has any intrinsic kidney disease. No reason to believe he has any obstructive uropathy. Plan Obtain 24 urine collection for creatinine clearance Check serum creatinine levels and CPK. Encouraged him to stand low-sodium diet Increase p.o. fluid intake. Further workup will depend on the outcome of the baseline investigations. Orders: Orders Sodium, 24Hr Urine Group Today N28.9 - Disorder of kidney and ureter, unspecified Creatinine, 24 Hr Group Today N28.9 - Disorder of kidney and ureter, unspecified Basic Metabolic Panel Today N28.9 - Disorder of kidney and ureter, unspecified Creatine Kinase Total Today N28.9 - Disorder of kidney and ureter, unspecified Coding Level of Care Code New Pt Level 4 (78224) Diagnoses Decreased renal function N28.9
== END 2024-12-09 09:51 | disposition home or self-care (01) ==
LOC: HO.HKA 09:19
PROVIDERS: PCP Physician Assistant Medical; Referring Provider Physician Assistant Medical; Visit Provider Internal Medicine Hypertension Specialist
DX: N28.9 Disorder of kidney and ureter, unspecified (principal)
CPT/HCPCS: 99204

== ENCOUNTER 2024-12-12 08:20 | Outpatient (REF) | payer OTHER, SELFPAY ==
[2024-12-12 11:55] LABS: Anion Gap 13 (12-20); Blood Urea Nitrogen 24 mg/dL (9-16); Calcium 9.3 mg/dL (8.4-10.2); Carbon Dioxide 26 mmol/L (22-29); Chloride 108 mmol/L (96-108); Estimated Glomerular Filt Rate 51; Potassium 4.4 mmol/L (3.3-5.1); Sodium 143 mmol/L (135-145)
[2024-12-12 14:34] LABS: Total Volume 24 Hour Urine 750 mL
[2024-12-12 14:50] LABS: Creatinine, mg/dL 285.38; Creatinine, mg/dL 285.99; Sodium, 24 Hr Urine 48.0 mmol/L
== END 2024-12-12 08:21 | disposition home or self-care (01) ==
LOC: HO.WFDLDS 08:20
PROVIDERS: Visit Provider Internal Medicine Hypertension Specialist
DX: N28.9 Disorder of kidney and ureter, unspecified (principal)
CPT/HCPCS: 36415; 80048; 82550; 82570; 84300

== ENCOUNTER 2025-01-09 09:54 | Outpatient (REF) | payer OTHER, SELFPAY ==
[2025-01-09 14:30] LABS: Anion Gap 12 (12-20); Blood Urea Nitrogen 21 mg/dL (9-16); Calcium 9.4 mg/dL (8.4-10.2); Carbon Dioxide 27 mmol/L (22-29); Chloride 107 mmol/L (96-108); Estimated Glomerular Filt Rate 59; Potassium 4.2 mmol/L (3.3-5.1); Sodium 142 mmol/L (135-145)
== END 2025-01-09 09:55 | disposition home or self-care (01) ==
LOC: HO.WFDLDS 09:54
PROVIDERS: PCP Physician Assistant Medical; Visit Provider Internal Medicine Hypertension Specialist
DX: R79.89 Other specified abnormal findings of blood chemistry (principal)
CPT/HCPCS: 36415; 80048

== ENCOUNTER 2025-01-09 09:54 | Outpatient (AMB) | payer OTHER, SELFPAY ==
--- NOTE | 2025-01-09 09:56 | HO.NEPHOV_ITS ---
Vital Signs 01/09/25 09:57 Height 5 ft 6 in Weight 191 lb BMI 30.8 BP 108/72 Blood Pressure Location Lt brachial Position Sitting Pulse 90 Pulse Source Pulse Oximeter Pulse Oximetry (%) 97 Oxygen Delivery Method Room Air Intake Visit Reasons: 1 MO FU-[facility] Sash Maker Required: No Accompanied by: Self / Same As Patient Allergies Seasonal Allergies Allergy (Verified 01/09/25 09:58) Runny Nose HPI Comments Details: The patient is a 54-year-old male presenting with elevated serum creatinine levels. The patient had been taking creatine supplements for bodybuilding, which may have contributed to the elevated creatinine levels. The creatinine level was 1.01 mg/dL in July 2023, which increased to 1.56 mg/dL in September 2024. The patient stopped taking creatine supplements approximately six weeks ago, and a follow-up blood test showed some improvement, but the levels were still not within the normal range. The patient has a family history of chronic kidney disease, as his mother has been diagnosed with stage 3 or 4 kidney disease, although she is not on dialysis. she has DM The patient also reports mild sleep apnea, for which a sleep study was conducted approximately four weeks ago, but the results have not yet been reviewed. The patient maintains an active lifestyle, regularly attending the gym and using the [employer] three times a week. 01/09/25 The patient is a 54-year-old male presenting with concerns about kidney function and creatinine supplementation. He stopped creatinine supplements a couple of months ago and is considering restarting them. Serum creatinine was 1.43 mg/dL on December 12, down from 1.56 mg/dL in September. Two years ago, it was 1.01 mg/dL, showing a significant increase. Urine output is 750 cc, indicating low output, and he has been advised to increase fluid intake. The patient consumes a high-protein diet, potentially affecting blood urea nitrogen levels. Social History: - Exercise: Engages in [employer] exercise for 30 minutes, three times a week. - Nutrition: Consumes a high-protein diet. Diagnostic Results: - Labs: Serum creatinine was 1.43 mg/dL on December 12, previously 1.56 mg/dL in September. - Labs: Urine output was 750 cc, with 285 mg of creatinine produced. Cr cl is 106 ml/mt [facility] Medical History (Updated 01/09/25 @ 10:09 by Anil Hernandez MD) Decreased renal function Routine physical examination Sinusitis Surgical History H/O vasectomy Family History Brother Mental health disorder Father Mental health disorder High blood pressure Cardiovascular disease Mother Breast cancer Colon cancer Maternal Grandmother Breast cancer Maternal Grandfather Colon cancer Social History Household Members: Family Both parents involved: No Caregiver staying overnight: No Housing: House Are you a primary ocular care technician to a significant other at home: No Do you presently have visiting nurse or other home services: No Alcohol intake: current Alcohol intake frequency: a few times a week Alcohol type: beer and hard liquor Patient Tobacco Use Status: Never used Tobacco Tobacco use type: Cigarette e-Cigarette/Vaping Use: Never Used Second Hand Smoke Exposure: No Substance Use Type: Marijuana and Other Special sumit needs: No service: No Current occupational status: employed Current occupation: IT worker. Cognitive needs: No Hearing needs: No Vision needs: Yes (Patient wears reading glasses. ) Physical Exam Exam Exam: unchanged Vital Signs: Last Vital Signs Pulse 90 01/09/25 09:57 BP 108/72 01/09/25 09:57 Pulse Ox 97 01/09/25 09:57 Oxygen Delivery Method Room Air 01/09/25 09:57 BMI result Body Mass Index 30.8 Results Reviewed Nephrology Results: Sodium, (135-145) 143 mmol/L 12/12/24 Potassium, (3.3-5.1) 4.4 mmol/L 12/12/24 Chloride, (96-108) 108 mmol/L 12/12/24 Carbon Dioxide, (22-29) 26 mmol/L 12/12/24 BUN, (9-16) 24 mg/dL H 12/12/24 Creatinine, (0.5-1.4) 1.43 mg/dL H 12/12/24 Calcium, (8.4-10.2) 9.3 mg/dL 12/12/24 Urine Protein, (Neg-Trace) Negative mg/dL 09/30/24 Urine Creatinine 316.34 mg/dL 09/30/24 Assessment & Plan Assessment & Plan (1) Elevated serum creatinine: Code(s): R79.89 - Other specified abnormal findings of blood chemistry Category: Medical Plan Amilcar has elevated serum creatinine. I believe this is due to increase creatinine intake. Recent urine studies were benign and I do not believe he has any intrinsic kidney disease. No reason to believe he has any obstructive uropathy. 24 hr urine shows a Cr cl of 106 ml/mt - Drink more water to increase urine output to at least 1-1.5 liters daily. - Get blood tests today and in three months for follow creatinine levels If Cr > !.4, would obtain Renal USG - Monitor creatinine levels Q 3 months for now Orders: Orders Basic Metabolic Panel 6 Months - Other specified abnormal findings of blood chemistry Basic Metabolic Panel Today R7. - Other specified abnormal findings of blood chemistry Basic Metabolic Panel 3 Months . - Other specified abnormal findings of blood chemistry Coding Level of Care Code Est Pt Level 4 (41373) Diagnoses Elevated serum creatinine .
[2025-01-09 09:57] VITALS: BP 108/72; PULSE 90; O2SAT 97; BMI 30.8
== END 2025-01-09 10:13 | disposition home or self-care (01) ==
LOC: HO.HKA 09:54
PROVIDERS: PCP Physician Assistant Medical; Visit Provider Internal Medicine Hypertension Specialist
DX: R79.89 Other specified abnormal findings of blood chemistry (principal)
CPT/HCPCS: 99214

== ENCOUNTER 2025-04-10 10:26 | Outpatient (REF) | payer OTHER, SELFPAY ==
[2025-04-10 18:50] LABS: Anion Gap 10 (12-20); Blood Urea Nitrogen 16 mg/dL (9-16); Calcium 9.6 mg/dL (8.4-10.2); Carbon Dioxide 27 mmol/L (22-29); Chloride 107 mmol/L (96-108); Estimated Glomerular Filt Rate 50; Potassium 4.7 mmol/L (3.3-5.1); Sodium 139 mmol/L (135-145)
== END 2025-04-10 10:27 | disposition home or self-care (01) ==
LOC: HO.WFDLDS 10:26
PROVIDERS: Visit Provider Internal Medicine Hypertension Specialist
DX: R79.89 Other specified abnormal findings of blood chemistry (principal)
CPT/HCPCS: 36415; 80048